=== PATIENT | male | born 2000 | race Caucasian/White ===

== ENCOUNTER 2024-04-14 09:44 | Emergency (ER) | payer BC, OTHER ==
[~2024-04-14] VITALS: Ht 188 cm; Wt 117.9 kg
[2024-04-14 09:44] VITALS: BP 155/83; PULSE 74; RESP 18; TEMP 98.7; O2SAT 98
[2024-04-14] MEDS: MOTRIN PO STA (10:09)
[2024-04-14 10:45] VITALS: BP 142/75; PULSE 76; RESP 18; TEMP 98.7; O2SAT 98
[2024-04-14] MEDS ORDERED: METH-621 PO (10:46)
== END 2024-04-14 10:47 | disposition home or self-care (01) ==
LOC: ER 09:44
DX: S16.1XXA Strain of muscle, fascia and tendon at neck level, initial encounter (principal); X58.XXXA Exposure to other specified factors, initial encounter; Y93.89 Activity, other specified; Y92.89 Other specified places as the place of occurrence of the external cause; Y99.8 Other external cause status
CPT/HCPCS: 72125; 99284